=== PATIENT | female | born 1985 | race American Indian/Alaskan Native ===

== ENCOUNTER 2018-03-02 11:05 | Emergency (ER) | payer BC ==
[2018-03-02 11:15] VITALS: BP 127/71
--- NOTE | 2018-03-02 11:41 | Emergency Department Report ---
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 Patient presented complaining of right buttock pain for the last 3 days. Patient denied any fever or shortness of breath. She also denied any chest pain. She denied any vaginal bleeding or vaginal discharge or urinary symptoms. She stated that the baby is moving well and she doesn't have any issues with that. - Related Data Previous Rx's Medication Instructions Recorded Last Taken Type Acetaminophen/Codeine [Tylenol 1 tab PO Q6H PRN #14 tab 03/02/18 Unknown Rx /Codeine # 3 tab] Ondansetron [Zofran Odt] 4 mg PO Q8HR PRN #14 tab.rapdis 03/02/18 Unknown Rx Allergies Allergy/AdvReac Type Severity Reaction Status Date / Time amoxicillin AdvReac Shortness Verified 03/02/18 11:15 of Breath ED Review of Systems ROS: Stated complaint: THIGH/BUTTOCK PAIN Other details as noted in HPI Comment: All other systems reviewed and negative Constitutional: denies: chills, fever Cardiovascular: denies: chest pain Gastrointestinal: denies: abdominal pain, nausea, vomiting, diarrhea, constipation, hematemesis Genitourinary: denies: dysuria, frequency Musculoskeletal: denies: back pain ED Past Medical Hx - Past Medical History Previous Medical History?: No - Surgical History Past Surgical History?: No - Social History Smoking Status: Never Smoker Substance Use Type: None - Medications Home Medications: Home Medications Medication Instructions Recorded Confirmed Last Taken Type Acetaminophen/Codeine [Tylenol 1 tab PO Q6H PRN #14 tab 03/02/18 Unknown Rx /Codeine # 3 tab] Ondansetron [Zofran Odt] 4 mg PO Q8HR PRN #14 tab.rapdis 03/02/18 Unknown Rx ED Physical Exam - General Limitations: No Limitations General appearance: alert, in no apparent distress - Head Head exam: Present: atraumatic, normocephalic, normal inspection - Eye Eye exam: Present: normal appearance - ENT ENT exam: Present: normal exam, normal orophraynx, mucous membranes moist - Neck Neck exam: Present: normal inspection, full ROM. Absent: tenderness, meningismus, lymphadenopathy, thyromegaly - Respiratory Respiratory exam: Present: normal lung sounds bilaterally. Absent: respiratory distress, wheezes, rales, rhonchi, chest wall tenderness, accessory muscle use, decreased breath sounds, prolonged expiratory - Cardiovascular Cardiovascular Exam: Present: regular rate, normal rhythm, normal heart sounds - GI/Abdominal GI/Abdominal exam: Present: soft, normal bowel sounds. Absent: distended, tenderness, guarding, rebound, rigid, organomegaly, mass, bruit, pulsatile mass - Extremities Exam Extremities exam: Present: normal inspection, full ROM, normal capillary refill , other (localized tenderness to the lateral side of her right buttock). Absent : tenderness, pedal edema, calf tenderness - Back Exam Back exam: Present: normal inspection - Neurological Exam Neurological exam: Present: alert, oriented X3, CN II-XII intact, normal gait, reflexes normal - Skin Skin exam: Present: warm, intact, normal color ED Course Vital Signs 03/02/18 11:12 Temperature 99.4 F Pulse Rate 85 Blood Pressure 127/71 O2 Sat by Pulse 98 Oximetry ED Medical Decision Making - Medical Decision Making Patient had localized tenderness to the muscle area. 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 No clinical evidence of DVT even though the patient has risk for DVT since the patient is just localized to a small area which is tender to palpation in the lateral part buttock. I will treat this Tylenol 3 and advised patient to follow up with her primary care physician. I also advised her to return to the ER if her symptoms get worse or she started developing any chest pain or shortness of breath. Critical care attestation.: If time is entered above; I have spent that time in minutes in the direct care of this critically ill patient, excluding procedure time. ED Disposition Clinical Impression: Piriformis syndrome of right side Disposition: DC-01 TO HOME OR SELFCARE Is pt being admited?: No Condition: Stable Instructions: Piriformis Syndrome (ED) Prescriptions: Acetaminophen/Codeine [Tylenol /Codeine # 3 tab] 1 tab PO Q6H PRN #14 tab PRN Reason: Pain Ondansetron [Zofran Odt] 4 mg PO Q8HR PRN #14 tab.rapdis PRN Reason: Nausea And Vomiting Forms: Work/School Release Form(ED)
== END 2018-03-02 11:53 | disposition home or self-care (01) ==
LOC: ED 11:05
DX: O26.892 Other specified pregnancy related conditions, second trimester (principal); G57.01 Lesion of sciatic nerve, right lower limb; Z3A.20 20 weeks gestation of pregnancy; Z88.1 Allergy status to other antibiotic agents
CPT/HCPCS: 99281